=== PATIENT | female | born 1945 ===

== ENCOUNTER 2019-07-23 14:32 | Emergency (ER) | payer MEDICARE, MEDICAID ==
--- NOTE | 2019-07-23 14:42 | Emergency Department Record ---
History of Present Illness - General Chief Complaint: Abdominal Pain Stated Complaint: LOWER LT ABD PAIN Time Seen by Provider: 07/23/19 14:42 Source: Patient, Family Mode of Arrival: Ambulatory Limitations: No limitations - History of Present Illness Initial Comments: 74 yo female presents with left lower abdominal pain. She reports 2-3 days of pain, redness, swelling at a surgery site from April. She had surgery at [facility] with Dr Gupta. 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 No nausea, vomiting diarrhea. Yesterday she had a fever up to 103 with chills. She has not been in contact with her surgery at [facility]. Yesterday she had some fleeting left chest pain as well. No cough or shortness of breath. MD Complaint: Abdominal pain -: Days(s) Location: LLQ Radiation: LLQ Migration to: LLQ Quality: Aching Consistency: Constant Improves With: Nothing Worsens With: Movement Context: Recent surgery/procedure Associated Symptoms: Other (chest pain) - Related Data Home Medications Medication Instructions Recorded Confirmed Last Taken Amlodipine Besylate [Norvasc] 5 mg PO DAILY 07/23/19 07/23/19 Unknown Allergies Allergy/AdvReac Type Severity Reaction Status Date / Time No Known Drug Allergies Allergy Verified 07/23/19 14:47 Review of Systems Constitutional: Reports: Chills, Fever. Denies: Malaise, Weakness Eyes: Denies: Eye discharge ENT: Denies: Congestion, Throat pain Respiratory: Denies: Cough, Dyspnea, Hemoptysis, Stridor, Wheezes Cardiovascular: Reports: Chest pain. Denies: Palpitations, Syncope Endocrine: Denies: Fatigue, Polydipsia, Polyuria Gastrointestinal: Reports: As per HPI, Abdominal pain. Denies: Diarrhea, Nausea, Vomiting Genitourinary: Denies: Dysuria, Urgency Musculoskeletal: Denies: Arthralgia, Back pain, Neck pain Skin: Reports: Change in color. Denies: Bruising Neurological: Denies: Headache, Numbness, Weakness Psychiatric: Denies: Anxiety Hematological/Lymphatic: Denies: Easy bleeding, Easy bruising Physical Exam - General General Appearance: Alert, Oriented x3, Cooperative, No acute distress Limitations: No limitations - Head Head exam: Atraumatic, Normal inspection - Eye Eye exam: Normal appearance. negative: Conjunctival injection - ENT ENT exam: Normal exam, Mucous membranes moist Ear exam: Normal external inspection Nasal Exam: Normal inspection Mouth exam: Normal external inspection Teeth exam: Normal inspection Throat exam: Normal inspection - Neck Neck exam: Normal inspection - Respiratory Respiratory exam: Normal lung sounds bilaterally. negative: Respiratory distress - Cardiovascular Cardiovascular Exam: Regular rate, Normal rhythm, Normal heart sounds - GI/Abdominal GI/Abdominal exam: Soft, Tenderness (Tenderness in the LLQ, there is erythema, warmth. The erythema just crosses midline, incision is intact) - Extremities Extremities exam: Normal inspection. negative: Calf tenderness, Pedal edema, Tenderness - Back Back exam: Denies: CVA tenderness (R), CVA tenderness (L), Tenderness - Neurological Neurological exam: Alert, Oriented X3 - Psychiatric Psychiatric exam: Normal affect, Normal mood - Skin Skin exam: Erythema Course - Reevaluation(s) Reevaluation #1: 07/23/19 15:18 EKG #1: 15:07 Rate: 74 Rhythm: sinus [place]: left Intervals: normal ST segments: NS anterior ST changes. No reciprocal changes. No old EKG 07/23/19 15:32 The CBC was reviewed The WBC is 13.5 07/23/19 15:[address] was NC CR is 1.5 07/23/19 15:49 Troponin is normal CRP is elevated at 9.9 07/23/19 15:[address] scan was reviewed. 3.9cm fluid collection with adjacent inflammatory changes may represent abscess, hematoma, of inflammed seroma. Due to the internal density less likely ane urysm but it is in proximity to the left CF vasculature. Recommend US prior to biopsy or drainage. [facility] at [facility] was called to discuss with her doctor and transfer for infection 07/23/19 16:03 07/23/19 16:30 Waiting for call back at this time. 07/23/19 16:44 Dr Mendieta of [facility] accepts the patient for admission after [facility] discussion with Dr Gupta Medical Decision Making - Lab Data Result diagrams: 07/23/19 15:01 07/23/19 15:01 Disposition Disposition: Transfer Clinical Impression: Cellulitis Qualifiers: Site of cellulitis: unspecified site Qualified Code(s): L03.90 - Cellulitis, unspecified Disposition: Acute Care Hospital Transfer Transfer To: [facility] Reason For Transfer: Left Groin inflection Accepting Physician: Anam Time Discussed w/Accepting Physician: 16:44 Condition: (2) Stable Forms: Patient Portal Access Time of Disposition: 16:03 Quality - Quality Measures Quality Measures: N/A - Blood Pressure Screening Does Patient Have Any of the Following: No Blood Pressure Classification: Normal BP Reading Systolic Measurement: 118 Diastolic Measurement: 71 Screening for High Blood Pressure: < Normal BP, F/U Not Required > [G8783]
[2019-07-23 15:17] LABS: HEMATOCRIT 36.4 % (35.0-47.0); HEMOGLOBIN 11.4 gm/dl (11.6-16.0); MEAN CELL VOLUME 96.6 fl (81-97); MEAN CORPUSCULAR HEMOGLOBIN 30.2 pg (27-33); MEAN CORPUSCULAR HGB CONC 31.3 g/dl (32-36); MEAN PLATELET VOLUME 10.4 fl (7.4-10.4); PLATELET COUNT 231 K/uL (130-400); RED BLOOD COUNT 3.77 M/uL (3.80-5.40); RED CELL DISTRIBUTION WIDTH 15.1 % (11.5-14.5); WHITE BLOOD COUNT W/O DIFF 13.8 K/uL (4.2-12.2)
[2019-07-23 15:29] LABS: CREATININE 1.5 mg/dL (0.5-0.9)
[2019-07-23 15:30] LABS: PARTIAL THROMBOPLASTIN TIME 32.2 SECONDS (24.5-39.1); PROTHROMBIN TIME (PATIENT) 10.1 SECONDS (9.5-12.1)
--- NOTE | 2019-07-23 15:48 | CT SCAN REPORT ---
EXAMINATION: CT Abdomen and Pelvis without IV Contrast EXAM DATE: 07/23/2019 3:32 PM TECHNIQUE: Standard protocol CT imaging of the abdomen and pelvis was performed without intravenous c ontrast. INDICATION: left groin pain, fever, surgery COMPARISON: None ENCOUNTER: Not applicable CT ABDOMEN AND PELVIS FINDINGS: Lung Bases: There is lingular atelectasis/scarring. Within the right lower lobe (series 301, image 5) there is a groundglass nodular density which measures approximately 4 mm. Within the right lower lob e (series 301, image 15) there is a subtle nodular density which measures approximately 4 mm. Hepatobiliary: The liver is smooth in contour. Status post cholecystectomy. Pancreas: The pancreas is normal. Spleen: The spleen appears atrophic. Adrenals: There is diffuse thickening of the adrenal glands without evidence of a focal lesion. Kidneys, Ureters, & Bladder: No hydronephrosis. There are multiple bilateral vascular calcifications within the kidneys. Both ureters have a normal course and caliber and the urinary bladder a normal mo rphology and uniform wall thickness. No ureteral or bladder calculi are identified. Gastrointestinal: The stomach and small bowel are normal with no obstruction or inflammation. No CT s igns of acute appendicitis. The large bowel is within normal limits. Reproductive Organs: Unremarkable Lymphatic System: There is no adenopathy within the abdomen or pelvis. Vasculature: There is a bifurcating aorto biiliac stent. There is a absentee-[place] fusiform aneurysm of the i nfrarenal aorta with the aneurysm sac measuring 4.5 x 4.2 cm. Luminal details of the aorta cannot be assessed without the use of IV contrast. Peritoneum: No abnormal fluid collections or pneumoperitoneum. Posterior to the right hepatic lobe th ere are 2 partially calcified nodular densities which are indeterminate in etiology. Abdominal wall & Musculoskeletal: There is a subcutaneous anterior pelvic wall fluid collection super ficial and superior to the superior left pubic ramus and directly anterior to the left common femoral artery and vein which measures 3.9 x 3.5 cm. There is haziness and fat stranding adjacent to the flu id collection. There is multilevel degenerative disc disease. There is diffuse osteopenia. No destruc tive osseous lesions are identified. Assessment of the solid organs, soft tissues, and vascular structures is overall limited on noncontra st imaging, IMPRESSION: 1. 3.9 cm fluid collection with adjacent inflammatory change may represent an abscess, hematoma or in flamed seroma. Due to the internal density of this structure an aneurysm would be a less likely consi deration, however given the proximity to the left common femoral vasculature ultrasound evaluation pr ior to any biopsy or drainage would be recommended to exclude vascular communication. 2. Luminal details of the aorta are limited without the use of IV contrast. 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 3. 2 indeterminate partially calcified nodular densities posterior to the right hepatic lobe. With a surgical history of cholecystectomy these may represent gallstones which were dropped during surgery, however other calcified structures would be within the differential. Correlation with prior imaging is recommended to demonstrate stability of the structures. 4. Few subcentimeter right lower lobe pulmonary nodules. Follow-up CT in 6 months recommended. Dictated by: Zhou Waller on 07/23/2019 3:34 PM. .
[2019-07-23] MEDS: ACETAMINOPHEN 1,000 MG/100 ML BTL IVPB ONE (16:18)
[2019-07-23] MEDS ORDERED: VANCOMYCIN 1GM/200ML PREMIX 1 GM/200 ML PIGGYBACK IVPB SCH (16:45)
[2019-07-23] MEDS: CEFTRIAXONE 1GM/50ML BAG 1 GM/50 ML BAG IVPB ONE (17:10)
== END 2019-07-23 18:11 | disposition short-term general hospital (02) ==
LOC: ER 14:32
DX: L03.311 Cellulitis of abdominal wall (principal); R10.32 Left lower quadrant pain; R07.9 Chest pain, unspecified; F17.210 Nicotine dependence, cigarettes, uncomplicated
CPT/HCPCS: 74176; 80048; 84484; 85027; 85610; 85730; 86140; 93005; 93010; 96365; 96375; 99285; J0696